=== PATIENT | female | born 1960 | race Caucasian/White ===

== ENCOUNTER 2019-08-26 20:46 | Emergency (ER) | payer OTHER ==
[~2019-08-26] VITALS: Ht 157.5 cm; Wt 77.1 kg
[~2019-08-26 20:46] MED LIST: AMLO5 PO; CIPDEXSU BOTHEYES; HYDACE25S PR; LISI20 PO; MAGCIT300 PO; POLY500 PO; Zantac25 MG/1 ML PO
== END 2019-08-26 23:08 | disposition home or self-care (01) ==
LOC: ER 20:46
DX: T16.1XXA Foreign body in right ear, initial encounter (principal); Z79.899 Other long term (current) drug therapy; I10 Essential (primary) hypertension; J44.9 Chronic obstructive pulmonary disease, unspecified; F17.200 Nicotine dependence, unspecified, uncomplicated
CPT/HCPCS: 69200; 99282-25

== ENCOUNTER 2022-03-12 08:31 | Day surgery (SDC) | payer OTHER ==
[~2022-03-12] VITALS: Ht 152.4 cm; Wt 72.3 kg
[~2022-03-12 08:31] MED LIST changes: +ASPI81CH PO; +ATOR40TA PO; +BUSPIRONE HCL7.5 M1 PO; +HYDCHL25 PO
--- NOTE | 2022-03-12 09:40 | NUR ---
Ambulatory in Day Surgery History, Chart, Medications and Allergies reviewed before start of procedure.Patient confirms NPO status and agrees with scheduled surgery. Patient states colon prep results clear.Lungs clear T/O to Auscultation. Patient States Post-Procedure ride home has been arranged WITH SISTER IN LAW
--- NOTE | 2022-03-12 11:08 | NUR ---
03/12/22 1108 Veronica Salmon HISTORY,CHART, MEDICATIONS AND ALLERGIES REVIEWED BEFORE START OF PROCEDURE. PATIENT CONFIRMS NPO STATUS AND AGREES WITH SCHEDULED PROCEDURE. 3-LEAD EKG REVIEWED WITH PHYSICIAN PRIOR TO START OF PROCEDURE. MONITOR INTACT WITH CONTINUOUS PULSE OXIMETRY AND INTERMITTENT BP. SUPPLEMENTAL O2 TO BE TITRATED THROUGHOUT PROCEDURE TO MAINTAIN O2 SATURATION ABOVE 90%. PATIENT DETERMINED TO BE ASA APPROPRIATE FOR MODERATE SEDATION PRIOR TO START OF PROCEDURE BY .
--- NOTE | 2022-03-12 11:26 | NUR ---
Patient up to Ambulate independently. Gait steady. Discharge instructions reviewed with patient. Patient verbalizes understanding. Copy given to patient to take home. Discharged via wheelchair to private car for ride home.
== END 2022-03-12 23:27 | disposition home or self-care (01) ==
LOC: ORSCMMR 08:31 → ORD 09:30 → ORSCMMR 23:27
PROVIDERS: Internal Medicine Gastroenterology
PROC: 0DBN8ZX Excision of Sigmoid Colon, Via Natural or Artificial Opening Endoscopic, Diagnostic (ICD-10-PCS; principal; 2022-03-12 09:30)
PROC: 0DBK8ZX Excision of Ascending Colon, Via Natural or Artificial Opening Endoscopic, Diagnostic (ICD-10-PCS; principal; 2022-03-12 09:30)
PROC: 0DBM8ZX Excision of Descending Colon, Via Natural or Artificial Opening Endoscopic, Diagnostic (ICD-10-PCS; principal; 2022-03-12 09:30)
PROC: 0DBE8ZX Excision of Large Intestine, Via Natural or Artificial Opening Endoscopic, Diagnostic (ICD-10-PCS; principal; 2022-03-12 09:30)
DX: K62.5 Hemorrhage of anus and rectum (principal); K63.5 Polyp of colon; K52.9 Noninfective gastroenteritis and colitis, unspecified; K57.30 Diverticulosis of large intestine without perforation or abscess without bleeding; G47.33 Obstructive sleep apnea (adult) (pediatric); I10 Essential (primary) hypertension; J44.9 Chronic obstructive pulmonary disease, unspecified; Z79.899 Other long term (current) drug therapy; Z79.82 Long term (current) use of aspirin; Z87.891 Personal history of nicotine dependence; E78.00 Pure hypercholesterolemia, unspecified; F41.9 Anxiety disorder, unspecified
CPT/HCPCS: J2250; J3010; J7120

== ENCOUNTER → 2023-08-05 | Outpatient (CLI) | payer MEDICARE, OTHER ==
[2023-08-05 12:14] LABS: BASOPHILS ABSOLUTE AUTO 0.09 K/mm3 (0.00-0.23); BASOPHILS PERCENT AUTO 1 % (0-2); EOSINOPHILS PERCENT AUTO 4 % (0-6); Hematocrit 38.3 % (33.0-51.0); Hemoglobin 13.2 g/dL (11.5-16.0); IMMATURE GRAN ABSOLUTE AUTO 0.03 K/mm3 (0.00-0.10); IMMATURE GRAN PERCENT AUTO 0 % (0-1); LYMPHOCYTES PERCENT AUTO 21 % (21-46); MONOCYTES ABSOLUTE AUTO 0.83 K/mm3 (0.16-1.47); MONOCYTES PERCENT AUTO 7 % (4-13); Mean Corpuscular HGB Conc 34.5 g/dL (31.5-36.5); Mean Corpuscular Volume 93 fL (80-100); Mean Platelet Volume 10.1 fL (9.1-12.4); NEUTROPHILS PERCENT AUTO 67 % (41-73); Platelet Count 327 K/mm3 (150-400); RDW Standard Deviation 43.8 fL (35.1-46.3); Red Blood Cell Count 4.13 M/mm3 (3.80-5.20); White Blood Cell Count 11.35 K/mm3 (4.00-11.30)
[2023-08-05 12:30] LABS: Albumin, Blood 4.4 g/dL (3.4-5.0); Albumin/Globulin Ratio 1.1 (0.8-1.8); Bilirubin, Total 0.2 mg/dL (0.1-1.0); Bun/Creatinine Ratio 25.6 (12.0-20.0); Calcium, Blood 9.8 mg/dL (8.5-10.1); Creatinine, Blood 1.6 mg/dL (0.40-1.00); Globulin, Blood 4.1 g/dL (2.2-4.0); Potassium, Blood 4.1 mmol/L (3.5-5.5); Total Protein, Blood 8.5 g/dL (6.4-8.2)
== END | disposition home or self-care (01) ==
LOC: LAB SHORT 12:06 → LAB 12:06
PROVIDERS: Family Medicine
DX: R63.4 Abnormal weight loss (principal)
CPT/HCPCS: 80053; 85025

== ENCOUNTER → 2023-08-05 | Outpatient (CLI) | payer MEDICARE, OTHER ==
[2023-08-06 07:52] LABS: Stool Occult Bld Immuno 1 Positive (NEGATIVE)
== END ==
LOC: LAB 13:45 → LAB SHORT 13:45
PROVIDERS: Family Medicine
DX: R19.7 Diarrhea, unspecified (principal)
CPT/HCPCS: G0328

== ENCOUNTER → 2023-08-10 | Outpatient (CLI) | payer MEDICARE, OTHER ==
[2023-08-10 13:16] LABS: Adenovirus F 40/41 Not Detected (NOT DETECT); Astrovirus Not Detected (NOT DETECT); Campylobacter Sp Not Detected (NOT DETECT); Cryptosporidium Not Detected (NOT DETECT); Cyclospora Cayetanensis Not Detected (NOT DETECT); E. Coli O157 Not Detected (NOT DETECT); Entamoeba Histolytica Not Detected (NOT DETECT); Enteroaggregative E. coli-EAEC Not Detected (NOT DETECT); Enteropathogenic E. coli-EPEC Not Detected (NOT DETECT); Enterotoxigenic E. coli-ETEC Not Detected (NOT DETECT); Giardia Lamblia Not Detected (NOT DETECT); Norovirus GI/GII Not Detected (NOT DETECT); Plesiomonas Shigelloides Not Detected (NOT DETECT); Rotavirus A Not Detected (NOT DETECT); Salmonella Sp Not Detected (NOT DETECT); Sapovirus Not Detected (NOT DETECT); Shiga Toxin-prod E. coli-STEC Not Detected (NOT DETECT); Shigella/Enteroin E. coli-EIEC Not Detected (NOT DETECT); Vibrio Cholerae Not Detected (NOT DETECT); Vibrio Sp Not Detected (NOT DETECT); Yersinia Enterocolitica Not Detected (NOT DETECT)
== END ==
LOC: LAB 10:00 → LAB SHORT 10:00
PROVIDERS: Family Medicine
DX: R19.7 Diarrhea, unspecified (principal)
CPT/HCPCS: 87507

== ENCOUNTER 2023-09-13 14:26 | Emergency (ER) | payer MEDICARE, OTHER ==
[~2023-09-13] VITALS: Ht 157.5 cm; Wt 58.5 kg
[2023-09-13 15:03] LABS: BASOPHILS ABSOLUTE AUTO 0.08 K/mm3 (0.00-0.23); BASOPHILS PERCENT AUTO 1 % (0-2); EOSINOPHILS ABSOLUTE AUTO 0.31 K/mm3 (0.00-0.68); EOSINOPHILS PERCENT AUTO 3 % (0-6); Hematocrit 32.5 % (33.0-51.0); Hemoglobin 11.1 g/dL (11.5-16.0); IMMATURE GRAN ABSOLUTE AUTO 0.03 K/mm3 (0.00-0.10); IMMATURE GRAN PERCENT AUTO 0 % (0-1); LYMPHOCYTES ABSOLUTE AUTO 2.61 K/mm3 (0.84-5.20); LYMPHOCYTES PERCENT AUTO 27 % (21-46); MONOCYTES ABSOLUTE AUTO 0.77 K/mm3 (0.16-1.47); MONOCYTES PERCENT AUTO 8 % (4-13); Mean Corpuscular HGB 31.9 pg (26.0-34.0); Mean Corpuscular HGB Conc 34.2 g/dL (31.5-36.5); Mean Corpuscular Volume 93 fL (80-100); Mean Platelet Volume 10.4 fL (9.1-12.4); NEUTROPHILS ABSOLUTE AUTO 5.82 K/mm3 (1.96-9.15); NEUTROPHILS PERCENT AUTO 61 % (41-73); Platelet Count 309 K/mm3 (150-400); RDW Standard Deviation 44.4 fL (35.1-46.3); Red Blood Cell Count 3.48 M/mm3 (3.80-5.20); White Blood Cell Count 9.62 K/mm3 (4.00-11.30)
[2023-09-13 15:19] LABS: Albumin/Globulin Ratio 1.1 (0.8-1.8); Bilirubin, Total 0.3 mg/dL (0.1-1.0); Bun/Creatinine Ratio 18.2 (12.0-20.0); Calcium, Blood 9.4 mg/dL (8.5-10.1); Creatinine, Blood 1.7 mg/dL (0.40-1.00); Globulin, Blood 3.8 g/dL (2.2-4.0); Potassium, Blood 4.3 mmol/L (3.5-5.5); Total Protein, Blood 7.8 g/dL (6.4-8.2)
[2023-09-13 18:30] VITALS: BP 152/76
== END 2023-09-13 19:10 | disposition home or self-care (01) ==
LOC: ER 14:26
PROVIDERS: Physician Assistant
DX: K52.9 Noninfective gastroenteritis and colitis, unspecified (principal); R63.4 Abnormal weight loss; I10 Essential (primary) hypertension; J44.9 Chronic obstructive pulmonary disease, unspecified; G47.30 Sleep apnea, unspecified; Z79.899 Other long term (current) drug therapy; Z79.82 Long term (current) use of aspirin
CPT/HCPCS: 74177; 80053; 83690; 84443; 85025; 96360-59; 99284-25; J7030; Q9967

== ENCOUNTER 2025-06-09 11:57 | Inpatient (IN) | payer MEDICARE, OTHER ==
[~2025-06-09] VITALS: Ht 154.9 cm; Wt 47.9 kg
[2025-06-09 12:27] LABS: BASOPHILS ABSOLUTE AUTO 0.08 K/mm3 (0.00-0.23); BASOPHILS PERCENT AUTO 1 % (0-2); EOSINOPHILS ABSOLUTE AUTO 0.29 K/mm3 (0.00-0.68); EOSINOPHILS PERCENT AUTO 4 % (0-6); Hematocrit 34.1 % (33.0-51.0); Hemoglobin 11.6 g/dL (11.5-16.0); IMMATURE GRAN ABSOLUTE AUTO 0.01 K/mm3 (0.00-0.10); IMMATURE GRAN PERCENT AUTO 0 % (0-1); LYMPHOCYTES ABSOLUTE AUTO 2.64 K/mm3 (0.84-5.20); LYMPHOCYTES PERCENT AUTO 35 % (21-46); MONOCYTES ABSOLUTE AUTO 0.85 K/mm3 (0.16-1.47); MONOCYTES PERCENT AUTO 11 % (4-13); Mean Corpuscular HGB Conc 34.0 g/dL (31.5-36.5); Mean Corpuscular Volume 95 fL (80-100); NEUTROPHILS ABSOLUTE AUTO 3.77 K/mm3 (1.96-9.15); NEUTROPHILS PERCENT AUTO 49 % (41-73); NRBC ABSOLUTE 0.00 K/mm3 (0.00-0.02); NRBC Auto 0.0 /100 WBC (0.0-0.2); Platelet Count 278 K/mm3 (150-400); RDW Coefficient Variation 13.7 % (11.7-14.2); RDW Standard Deviation 48.1 fL (35.1-46.3)
[2025-06-09 13:08] LABS: Alanine Aminotransfer (ALT/SGP 35.0 U/L (12-78); Albumin, Blood 4.2 g/dL (3.4-5.0); Albumin/Globulin Ratio 1.0 (0.8-1.8); Anion Gap 6.0 mmol/L (3-11); Aspartate Aminotrans (AST/SGOT 70.0 U/L (12-37); Bilirubin, Total 0.4 mg/dL (0.1-1.0); Blood Urea Nitrogen 24.0 mg/dL (8-24); CO2, Blood 29.0 mmol/L (21-32); Calcium, Blood 9.8 mg/dL (8.5-10.1); Chloride, Blood 105.0 mmol/L (98-108); Creatinine, Blood 0.71 mg/dL (0.40-1.00); Globulin, Blood 4.1 g/dL (2.2-4.0); Glucose, Blood 107.0 mg/dL (70-99); Potassium, Blood 4.7 mmol/L (3.5-5.5); Sodium, Blood 135.0 mmol/L (136-145); Total Protein, Blood 8.3 g/dL (6.4-8.2)
[2025-06-09] MEDS ORDERED: NS 1,000 ML IV SCH ×2 (14:35→22:25)
[2025-06-09] MEDS ORDERED: HydrALAZINE HCl 20 MG / ML 1ML Vial IV ONE (15:50)
[2025-06-09 16:30] LABS: Anti-Xa UFH, PHA Monitoring <0.10 IU/mL; Prothrombin Time Results 10.5 Sec (9.7-11.5)
[2025-06-09] MEDS ORDERED: Dose Adjust by Pharmacy XX STA (16:33)
[2025-06-09] MEDS ORDERED: Heparin Sodium,Porcine/0.5 NS 500 ML IV SCH (16:35)
[2025-06-09] MEDS ORDERED: Heparin Sodium 5000 Units/ML 1ML MDV IV ONE (16:35)
[2025-06-09] MEDS ORDERED: HydrALAZINE HCl 20 MG / ML 1ML Vial IV PRN (17:10)
--- NOTE | 2025-06-09 18:26 | NUR ---
ARRIVAL: PATIENT ARRIVES TO UNIT AND TRANSFERRED TO OUR BED VIA TRANSFERRING. PT WAS COLD AND SHAKING WHEN SHE GOT INTO OUR BED. VITAL SIGNS STABLE. PT WAS TRANSFFERED WITH HEAPRIN RUNNING UPON TRANSFER, THIS RN CALLED VERIFYING SHE WOULD LIKE HEPARIN DC'D ON EMAR IT WAS DISCONTINUED. GAVE VERIFCATION IT WAS DISCONTINUED AND TO ADD NAUSEA MEDICATION
[2025-06-09 18:30] VITALS: BP 155/78
[2025-06-09] MEDS ORDERED: Ondansetron HCl 2 MG / ML 2ML Vial IV PRN (18:45)
[2025-06-09 19:50] VITALS: BP 152/104
[2025-06-09] MEDS ORDERED: NS 1,000 ML IV ONE ×2 (22:21→23:29)
[2025-06-09 22:22] LABS: BASOPHILS ABSOLUTE AUTO 0.06 K/mm3 (0.00-0.23); BASOPHILS PERCENT AUTO 1 % (0-2); EOSINOPHILS ABSOLUTE AUTO 0.00 K/mm3 (0.00-0.68); EOSINOPHILS PERCENT AUTO 0 % (0-6); Hematocrit 34.4 % (33.0-51.0); Hemoglobin 11.9 g/dL (11.5-16.0); IMMATURE GRAN ABSOLUTE AUTO 0.02 K/mm3 (0.00-0.10); IMMATURE GRAN PERCENT AUTO 0 % (0-1); LYMPHOCYTES ABSOLUTE AUTO 1.31 K/mm3 (0.84-5.20); LYMPHOCYTES PERCENT AUTO 11 % (21-46); MONOCYTES ABSOLUTE AUTO 0.63 K/mm3 (0.16-1.47); MONOCYTES PERCENT AUTO 5 % (4-13); Mean Corpuscular HGB Conc 34.6 g/dL (31.5-36.5); Mean Corpuscular Volume 93 fL (80-100); NEUTROPHILS ABSOLUTE AUTO 9.69 K/mm3 (1.96-9.15); NEUTROPHILS PERCENT AUTO 83 % (41-73); NRBC ABSOLUTE 0.00 K/mm3 (0.00-0.02); NRBC Auto 0.0 /100 WBC (0.0-0.2); Platelet Count 269 K/mm3 (150-400); RDW Coefficient Variation 13.6 % (11.7-14.2); RDW Standard Deviation 45.7 fL (35.1-46.3)
--- NOTE | 2025-06-09 22:42 | NUR ---
PATIENT EVENT / TRANSFER OF CARE NOTE PT WAS GETTING SET UP WITH CPAP BY RT WHEN SHE STATED FELT DIZZY AND STARTED TO SEE STARS, AT THAT TIME TELE ALERTED THE THAT PT HAD A 12 SECOND PAUSE, PT DID NOT LOSE CONSCIOUSNESS, MULTIPLE STAFF TO BEDSIDE INCLUDING PCU CHARGE AND ICU CHARGE, EKG OBTAINED SHOWING PT WAS IN A COMPLETE HEART BLOCK, ZOLL PATCHES PLACED ON PATIENT, OTHER VSS STABLE, PT HOLDING APPROPRIATE CONVERSATION, DENIED CHEST P/P, REPORTED TINGLYING TO ARMS AND LEGS BUT STATED SHE NO LONGER WAS SEEING STARS OR FEELING LIKE SHE WAS GOING TO PASS OUT, MD TO BEDSIDE, FLUIDS STARTED, LABS OBTAINED, PT TRANSFERED TO ICU 8, BEDSIDE REPORT GIVEN TO YAEL MURRELL BY THIS RN.
[2025-06-09 22:45] VITALS: BP 133/53
--- NOTE | 2025-06-09 22:45 | NUR ---
ASSUMPTION OF CARE/PCU TRANSFER RECEIVED PT FROM PCU AT 2230. TRANSFERRED TO ICU BED, MONITORS PLACED. BEDSIDE REPORT RECEIVED FROM INSULATION PACKER NANCY. PT IN THIRD DEGREE HEART BLOCK WITH STABLE BP. PT AWAKE, ORIENTED, CONVERSING, STATES SHE JUST FEELS WEAK/LETHARGIC. ORIENTED TO SURROUNDINGS/CALL LIGHT. SEE SHIFT ASSESSMENT FOR FURTHER DETAILS.
[2025-06-09 22:49] LABS: Alanine Aminotransfer (ALT/SGP 28.0 U/L (12-78); Albumin, Blood 4.0 g/dL (3.4-5.0); Albumin/Globulin Ratio 1.1 (0.8-1.8); Anion Gap 10.0 mmol/L (3-11); Aspartate Aminotrans (AST/SGOT 31.0 U/L (12-37); Bilirubin, Total 0.4 mg/dL (0.1-1.0); Blood Urea Nitrogen 22.0 mg/dL (8-24); CO2, Blood 25.0 mmol/L (21-32); Calcium, Blood 9.4 mg/dL (8.5-10.1); Chloride, Blood 106.0 mmol/L (98-108); Creatinine, Blood 0.82 mg/dL (0.40-1.00); Globulin, Blood 3.5 g/dL (2.2-4.0); Glucose, Blood 114.0 mg/dL (70-99); Magnesium, Blood 1.9 mg/dL (1.6-2.4); Potassium, Blood 3.7 mmol/L (3.5-5.5); Sodium, Blood 137.0 mmol/L (136-145); Total Protein, Blood 7.5 g/dL (6.4-8.2)
[2025-06-09 23:00] VITALS: BP 145/56
[2025-06-09 23:15] VITALS: BP 132/60
--- NOTE | 2025-06-09 23:25 | NUR ---
BILINGUAL LEGAL ASSISTANT PT TO BILINGUAL LEGAL ASSISTANT FOR TEMPORARY PACEMAKER PLACEMENT BY DR. CARDOZA.
[2025-06-09] MEDS ORDERED: Midazolam HCl 1MG / ML 2ML Vial ONE (23:28)
[2025-06-09] MEDS ORDERED: NS 250 ML IV ONE (23:28)
[2025-06-09] MEDS ORDERED: FentaNYL Citrate 50 MCG/ML 2 ML Injection ONE (23:28)
[2025-06-09] MEDS ORDERED: Heparin Sodium 1000 Units/ML 10ML MDV ONE (23:29)
[2025-06-09] MEDS ORDERED: Ondansetron HCl 2 MG / ML 2ML Vial ONE (23:59)
[2025-06-10] VITALS (60 sets, daily range): BP systolic 92–175; BP diastolic 53–112
--- NOTE | 2025-06-10 00:42 | NUR ---
TRANSFER FROM BREAST PULLER PT RETURNED FROM BREAST PULLER AT 0035 WITH A TEMPORARY PACEMAKER, RATE AT 60. PT STATES, "I FEEL MUCH BETTER". VSS. SEE ASSESSMENT FOR PACEMAKER INFO/SETTINGS.
[2025-06-10] MEDS ORDERED: Dose Adjust by Pharmacy XX STA ×3 (01:03→15:46)
[2025-06-10] MEDS ORDERED: Heparin Sodium,Porcine/0.5 NS 500 ML IV SCH (01:05)
[2025-06-10 02:41] LABS: BASOPHILS ABSOLUTE AUTO 0.02 K/mm3 (0.00-0.23); BASOPHILS PERCENT AUTO 0 % (0-2); EOSINOPHILS ABSOLUTE AUTO 0.01 K/mm3 (0.00-0.68); EOSINOPHILS PERCENT AUTO 0 % (0-6); Hematocrit 33.3 % (33.0-51.0); Hemoglobin 11.3 g/dL (11.5-16.0); IMMATURE GRAN ABSOLUTE AUTO 0.01 K/mm3 (0.00-0.10); IMMATURE GRAN PERCENT AUTO 0 % (0-1); LYMPHOCYTES ABSOLUTE AUTO 0.76 K/mm3 (0.84-5.20); LYMPHOCYTES PERCENT AUTO 10 % (21-46); MONOCYTES ABSOLUTE AUTO 0.35 K/mm3 (0.16-1.47); MONOCYTES PERCENT AUTO 5 % (4-13); Mean Corpuscular HGB Conc 33.9 g/dL (31.5-36.5); Mean Corpuscular Volume 95 fL (80-100); NEUTROPHILS ABSOLUTE AUTO 6.16 K/mm3 (1.96-9.15); NEUTROPHILS PERCENT AUTO 84 % (41-73); NRBC ABSOLUTE 0.00 K/mm3 (0.00-0.02); NRBC Auto 0.0 /100 WBC (0.0-0.2); Platelet Count 237 K/mm3 (150-400); RDW Coefficient Variation 14.0 % (11.7-14.2); RDW Standard Deviation 48.5 fL (35.1-46.3)
[2025-06-10 03:02] LABS: Anion Gap 11.0 mmol/L (3-11); Blood Urea Nitrogen 24.0 mg/dL (8-24); CO2, Blood 23.0 mmol/L (21-32); Calcium, Blood 9.1 mg/dL (8.5-10.1); Chloride, Blood 107.0 mmol/L (98-108); Creatinine, Blood 0.89 mg/dL (0.40-1.00); Glucose, Blood 113.0 mg/dL (70-99); Potassium, Blood 3.8 mmol/L (3.5-5.5); Sodium, Blood 137.0 mmol/L (136-145)
--- NOTE | 2025-06-10 06:25 | NUR ---
SHIFT SUMMARY RECEIVED PT FROM PCU IN THIRD DEGREE HEART BLOCK. PT WENT TO [facility]OTE ENCODING CENTER MANAGER AND HAD A TRANSVENOUS TEMPORARY PACEMAKER PLACED BY DR CARDOZA. UPON RETURN TO ICU, PT STATED, "I FEEL SO MUCH BETTER". VS REMAINED STABLE T/O NIGHT, DENIES CP OR DISCOMFORT, NO NAUSEA. WILL UPDATE DAY RN WITH OUTSTANDING ISSUES AND PROBLEMS TO DATE.
--- NOTE | 2025-06-10 10:42 | NUR ---
AM NOTE PT AWAKE AND ORIENTEDX4 IN BED FOR BEDSIDE REPORT FROM NOC NURSE. NEURO: ORIENTED X4. CARDIAC: TEMP TVP IN PLACE, 34 AT INSERTION SITE, SETTINGS 60/4/2 WITH CAPTURE DISPLAYING ON MONITOR. RESPIRATORY: ON RA, BREATH SOUNDS CLEAR. GI: NPO IN ANTICIPATION TO POTENTIAL ANGIO/CATH TODAY, BOWEL SOUNDS HYPOACTIVE. : WNL. SKIN INTACT AND WITHOUT BREAKDOWN. GTTS: HEPARIN 15, NS 75 ACCESS: PIV LFA AND LAC DREILING AT BEDSIDE TO DISCUSS PLAN OF CARE. WILL NOT PROCEED W/ ANGIO. PT CAN HAVE CARIDIAC DIET UNTIL 0000 06/12 IN ANTICIPATION FOR PERMANENT PACER PLACEMENT.
--- NOTE | 2025-06-10 17:46 | NUR ---
PM NOTE PT ASSESSMENT REMAINS THE SAME AM NOTE. HEPARIN HAS BEEN ADJUSTED TO 16 PER PHARMACY DOSING AND WILL REMAIN UNTIL REDRAW AT 2100 EVALUATION. PT TO REMAIN ON HEPARIN FOR 48 HOURS PER CARIOLOGY. PLAN FOR PACEMAKER PLACEMENT ON 06/12/25 REMAINS.
[2025-06-10] MEDS ORDERED: Clarify Drug Order XX ONE (21:30)
[2025-06-11] VITALS (46 sets, daily range): BP systolic 82–177; BP diastolic 51–139
[2025-06-11 03:20] LABS: BASOPHILS ABSOLUTE AUTO 0.07 K/mm3 (0.00-0.23); BASOPHILS PERCENT AUTO 1 % (0-2); EOSINOPHILS ABSOLUTE AUTO 0.38 K/mm3 (0.00-0.68); EOSINOPHILS PERCENT AUTO 5 % (0-6); Hematocrit 34.1 % (33.0-51.0); Hemoglobin 11.7 g/dL (11.5-16.0); IMMATURE GRAN ABSOLUTE AUTO 0.02 K/mm3 (0.00-0.10); IMMATURE GRAN PERCENT AUTO 0 % (0-1); LYMPHOCYTES ABSOLUTE AUTO 2.93 K/mm3 (0.84-5.20); LYMPHOCYTES PERCENT AUTO 36 % (21-46); MONOCYTES ABSOLUTE AUTO 0.88 K/mm3 (0.16-1.47); MONOCYTES PERCENT AUTO 11 % (4-13); Mean Corpuscular HGB Conc 34.3 g/dL (31.5-36.5); Mean Corpuscular Volume 95 fL (80-100); NEUTROPHILS ABSOLUTE AUTO 3.82 K/mm3 (1.96-9.15); NEUTROPHILS PERCENT AUTO 47 % (41-73); NRBC ABSOLUTE 0.00 K/mm3 (0.00-0.02); NRBC Auto 0.0 /100 WBC (0.0-0.2); Platelet Count 235 K/mm3 (150-400); RDW Coefficient Variation 14.3 % (11.7-14.2); RDW Standard Deviation 49.4 fL (35.1-46.3)
[2025-06-11 03:39] LABS: Anion Gap 7.0 mmol/L (3-11); Blood Urea Nitrogen 32.0 mg/dL (8-24); CO2, Blood 26.0 mmol/L (21-32); Calcium, Blood 8.4 mg/dL (8.5-10.1); Chloride, Blood 109.0 mmol/L (98-108); Creatinine, Blood 1.09 mg/dL (0.40-1.00); Glucose, Blood 112.0 mg/dL (70-99); Potassium, Blood 4.2 mmol/L (3.5-5.5); Sodium, Blood 138.0 mmol/L (136-145)
[2025-06-11] MEDS ORDERED: Clarify Drug Order XX ONE (04:35)
--- NOTE | 2025-06-11 06:23 | NUR ---
SHIFT SUMMARY PT HAD A RESTFUL, UNEVENTFUL NIGHT. TRANSVENOUS TEMP PACEMAKER INTACT, MEASURES AT APPROX 34 CM, NO CHANGE IN SETTINGS, RATE 60, OUTPUT 4 SENSING 2. VSS. DENIES CP/DISTRESS OR N/V. WILL UPDATE DAY RN WITH PT STATUS.
--- NOTE | 2025-06-11 11:22 | NUR ---
AM NOTE PT AWAKE AND ORIENTED FOR BEDSIDE REPORT W/ NOC RN. NEURO: A&OX4, AFEBRILE. CARDIAC: TEMP TVP IN PLACE IN [facility], MEASURING 34 AT INSERTION. SETTINGS 60/4/2, CONTINUOUS CARDIAC MONITORING SHOWS FULL CAPTURE OF PACER. RESPIRATORY: SATURATING WELL ON RA AND LUNGS CLEAR TO AUSCULTATION. GI: BOWEL SOUNDS ACTIVE AND ABD NONTENDER/SOFT TO PALPATION. : WNL. SKIN INTACT AND W/O BREAKDOWN. ACCESS: LFA PIV, RFA PIV GTTS: HEPARIN AT 16 DREILING AT BEDSIDE TO DO PACER CHECK/DISCUSS PLAN OF CARE W/ PATIENT. HEPARIN TO BE DC'D AT 0200 TO COMPLETE 48 HOUR REQUIREMENT. PT TO BE NPO AT MIDNIGHT IN PREPARATION FOR PROCEDURE 06/12/25. PT IS UNDERSTANDING OF THIS.
--- NOTE | 2025-06-11 18:01 | NUR ---
PM NOTE PT ASSESSMENT REMAINED UNCHANGED T/O SHIFT. SEE AM NOTE FOR DETAILS. PLAN FOR PERMANENT PACEMAKER 06/12, PT TO BE NPO AFTER MIDNIGHT. HEPARIN GTT TO BE DC'D AT 0200 06/12. PT REQUIRED ONE DOSE OF PRN HYDRALAZINE TO MAINTAIN SBP GOAL. ACCESS: RFA PIV, LFA PIV GTTS: HEPARIN AT 4
--- NOTE | 2025-06-11 23:57 | NUR ---
ASSUMED CARE OF PT AT 1900 PT IN ROOM ON BED, TALKING W/ VISITOR AT BEDSIDE. PT ALERT AND ORIENTED, COOPERATIVE W/ CARE. DENIES CP OR SOB. PT USING CALL LIGHT APPROPRIATELY. PT ON ROOM AIR W/ CLEAR LUNGS. PACED RATE OF 60 VIA [id number] NEON PUMPER. TEMPORARY PACER TO RIJ- AT APPROX 34CM INSERTION SITE. SETTINGS: 6-4-2. BP STABLE. PT AFEBRILE. USING BSC W/ MINIMAL NURSE ASSIST. PT AWARE SHE WILL BE NPO AT MIDNIGHT. PLAN FOR PACER PLACEMENT TOMORROW. PLAN OF CARE ONGOING.
[2025-06-12] VITALS (31 sets, daily range): BP systolic 91–201; BP diastolic 62–101
[2025-06-12 03:25] LABS: BASOPHILS ABSOLUTE AUTO 0.08 K/mm3 (0.00-0.23); BASOPHILS PERCENT AUTO 1 % (0-2); EOSINOPHILS ABSOLUTE AUTO 0.37 K/mm3 (0.00-0.68); EOSINOPHILS PERCENT AUTO 5 % (0-6); Hematocrit 33.1 % (33.0-51.0); Hemoglobin 11.3 g/dL (11.5-16.0); IMMATURE GRAN ABSOLUTE AUTO 0.01 K/mm3 (0.00-0.10); IMMATURE GRAN PERCENT AUTO 0 % (0-1); LYMPHOCYTES ABSOLUTE AUTO 2.69 K/mm3 (0.84-5.20); LYMPHOCYTES PERCENT AUTO 36 % (21-46); MONOCYTES ABSOLUTE AUTO 0.87 K/mm3 (0.16-1.47); MONOCYTES PERCENT AUTO 12 % (4-13); Mean Corpuscular HGB Conc 34.1 g/dL (31.5-36.5); Mean Corpuscular Volume 95 fL (80-100); NEUTROPHILS ABSOLUTE AUTO 3.45 K/mm3 (1.96-9.15); NEUTROPHILS PERCENT AUTO 46 % (41-73); NRBC ABSOLUTE 0.00 K/mm3 (0.00-0.02); NRBC Auto 0.0 /100 WBC (0.0-0.2); Platelet Count 222 K/mm3 (150-400); RDW Coefficient Variation 14.6 % (11.7-14.2); RDW Standard Deviation 50.4 fL (35.1-46.3)
[2025-06-12 04:36] LABS: Anion Gap 5.0 mmol/L (3-11); Blood Urea Nitrogen 35.0 mg/dL (8-24); CO2, Blood 26.0 mmol/L (21-32); Calcium, Blood 9.0 mg/dL (8.5-10.1); Chloride, Blood 111.0 mmol/L (98-108); Creatinine, Blood 1.06 mg/dL (0.40-1.00); Glucose, Blood 113.0 mg/dL (70-99); Potassium, Blood 4.4 mmol/L (3.5-5.5); Sodium, Blood 138.0 mmol/L (136-145)
[2025-06-12] MEDS ORDERED: Clarify Drug Order XX ONE (04:50)
[2025-06-12] MEDS ORDERED: CeFAZolin Sodium 1000 mg Vial ONE ×2 (10:52→10:57)
[2025-06-12] MEDS ORDERED: NS 1,000 ML IV ONE ×2 (10:52→10:57)
[2025-06-12] MEDS ORDERED: Heparin Sodium 1000 Units/ML 10ML MDV ONE (10:52)
[2025-06-12] MEDS ORDERED: NS 50 ML IV ONE (10:57)
[2025-06-12] MEDS ORDERED: Midazolam HCl 1MG / ML 2ML Vial ONE (11:34)
[2025-06-12] MEDS ORDERED: FentaNYL Citrate 50 MCG/ML 2 ML Injection ONE (11:35)
--- NOTE | 2025-06-12 13:44 | NUR ---
REASSESSMENT PT SPENT THE MORNING RESTING IN BED, EXCEPT TO GET UP TO COMMODE TO VOID. LUNGS HAVE REMAINED CLEAR, RA, 100% V-PACED VIA TV PACER. PT LEFT TO GET PERMANENT PACER PLACED AROUND 1100.
[2025-06-12] MEDS ORDERED: CeFAZolin Sodium 1,000 MG in NS 50 ML IV SCH (14:00)
--- NOTE | 2025-06-12 14:18 | NUR ---
PT BACK FROM LINE WORKER AFTE RPACER PLACEMENT. PT ALERT AND ORIENTED, DENIES PAIN. DRESSING OVER SITE WHERE TV PACER WAS IS C/D/I, SOFT, NO HEMATOMA. DRESSING OVER L CHEST FROM PACER PLACEMENT. SM, NICKEL SIZE AMOUNT OF SS DRAINAGE, OUTLINED. ICE PACK PLACED OVER SITE. PT'S FRIEND AND MOTHER AT THE BEDSIDE. THEY WERE UPDATED BY DR. BREWER IN THE WAITING ROOM. ACTIVITY RESTRICTIONS REVIEWED WITH PT.
--- NOTE | 2025-06-12 14:38 | NUR ---
SPOKE TO DR. GUZMAN ABOUT PT'S HTN. RECEIVED ORDER TO INCREASE PT'S DAILY DOSE OF LISINOPRIL TO 40MG, WHICH PT HAD BEEN TAKING AT HOME, AND GIVE ONE TIME 30MG DOSE.
--- NOTE | 2025-06-12 17:13 | NUR ---
SHIFT SUMMARY PT HAS REMAINED ALERT AND ORIENTED SINCE RETURNING FROM DAIRY FEED SALES CONSULTANT. SHE HAS BEEN AV PACE, V PACE AND HAD SOME INTRINSIC BEATS ON THE MONITOR. SHE WAS HYPERTENSIVE AFTER RETURNING AND RECEIVED HYDRALAZINE. SHORTLY AFTER SHE GOT NAUSEOUS AND THREW UP, BUT PT STATES NAUSEA IS VERY COMMON FOR HER. SBP REMAINS IN THE 160S. NAUSEA IMRPOVED WITH ZOFRAN AND PT WAS ABLE TO KEEP TYLENOL DOWN FOR PAIN THAT WAS STARTING TO DEVELOP IN HER SHOULDER. GETTING UP TO COMMODE TO VOID AND WAS ABLE TO TRANSFER SELF TO TO GO TO XRAY. PT'S MOTHER AND FRIEND HAVE BEEN IN AND VISITED.
--- NOTE | 2025-06-12 20:33 | NUR ---
ASSUMED CARE OF PT AT 1900 PT SITTING UP IN CHAIR- TRANSFERS SELF TO BED W/ LINE ASSIST AND STEADY GAIT. PT HAS VISITORS AND IS AOX4. DENIES CP/PRESSURE. PT SALINE LOCKED. ON ROOM AIR W/ ADEQUATE SATRUATIONS. PACED RHYTHM RATE OF 60S VIA CONTINUOUS MONITOR. INSERTION SITE TO L. CHEST C/D/I. BP STABLE. PT AFEBRILE. DENIES CURRENT NEEDS. CALL LIGHT W/ IN REACH. PLAN OF CARE ONGOING.
[2025-06-13] VITALS (10 sets, daily range): BP systolic 125–171; BP diastolic 70–90
[2025-06-13 03:19] LABS: BASOPHILS ABSOLUTE AUTO 0.08 K/mm3 (0.00-0.23); BASOPHILS PERCENT AUTO 1 % (0-2); EOSINOPHILS ABSOLUTE AUTO 0.18 K/mm3 (0.00-0.68); EOSINOPHILS PERCENT AUTO 2 % (0-6); Hematocrit 33.2 % (33.0-51.0); Hemoglobin 11.0 g/dL (11.5-16.0); IMMATURE GRAN ABSOLUTE AUTO 0.01 K/mm3 (0.00-0.10); IMMATURE GRAN PERCENT AUTO 0 % (0-1); LYMPHOCYTES ABSOLUTE AUTO 1.92 K/mm3 (0.84-5.20); LYMPHOCYTES PERCENT AUTO 25 % (21-46); MONOCYTES ABSOLUTE AUTO 0.92 K/mm3 (0.16-1.47); MONOCYTES PERCENT AUTO 12 % (4-13); Mean Corpuscular HGB Conc 33.1 g/dL (31.5-36.5); Mean Corpuscular Volume 97 fL (80-100); NEUTROPHILS ABSOLUTE AUTO 4.66 K/mm3 (1.96-9.15); NEUTROPHILS PERCENT AUTO 60 % (41-73); NRBC ABSOLUTE 0.00 K/mm3 (0.00-0.02); NRBC Auto 0.0 /100 WBC (0.0-0.2); Platelet Count 198 K/mm3 (150-400); RDW Coefficient Variation 14.6 % (11.7-14.2); RDW Standard Deviation 52.2 fL (35.1-46.3)
--- NOTE | 2025-06-13 05:58 | NUR ---
NOC SHIFT SUMMARY NO ACUTE EVENTS. PT SLEPT FOR MAJORITY OF SHIFT. DENIES CP OR SOB. REPORTS TENDERNESS TO PACER INSERTION SITE. DRESSING UNCHANGED FROM START OF SHIFT- NO FURTHER OOZING OBSERVED- DRESSING INTACT. PT REMAINS ON ROOM AIR. PACED RHYTHM, RATE OF 60S ON MONITOR. PT AFEBRILE. UP TO RR INDEPENDENTLY. USING CALL LIGHT APPROPRIATELY- WITHIN REACH. PLAN OF CARE ONGOING
[2025-06-13 08:03] LABS: Anion Gap 14.0 mmol/L (3-11); Blood Urea Nitrogen 29.0 mg/dL (8-24); CO2, Blood 23.0 mmol/L (21-32); Calcium, Blood 9.1 mg/dL (8.5-10.1); Chloride, Blood 107.0 mmol/L (98-108); Creatinine, Blood 1.02 mg/dL (0.40-1.00); Glucose, Blood 105.0 mg/dL (70-99); Potassium, Blood 4.5 mmol/L (3.5-5.5); Sodium, Blood 139.0 mmol/L (136-145)
[2025-06-13] MEDS ORDERED: LISI20 PO (08:53)
--- NOTE | 2025-06-13 10:20 | NUR ---
SHIFT/DISCHARGE SUMMARY NEURO: ALERT AND ORIENTED X4. MOVES ALL EXTREMITITES WELL. CARDIC: SR VPACED, EKG COMPLETED THIS AM PRIOR TO DC. SBP 130-140S ONE READING 170S PT EATING BREAKFAST AT THAT TIME. HR 60-70S. DENIES ANY SYNCOPE. PULM: LUNGS CLEAR TO AUSCULATION, DENIES ANY CHANGES IN BREATHING : INDEPENDENT PER PT URINATING PER NORMAL GI: ABDOMEN SOFT/NON TENDER, NORMOACTIVE BOWEL TONES SKIN: S/P PACEMAKER PLACEMENT. GAUZE/TEGADERM +DRAINAGE VISIBLE, NIGHT RN STATES UNCHANGED FROM LAST NIGHT. AREA IS MARKED. PRIOR RIJ SITE FOR TEMP PACER. DSG REMOVED SITE HEALING. PT INDEPENDENT MOBILITY. DISCUSSED DISCHARGE INSTRUCTIONS SIGNED POST PACEMAKER DISCHARGE INSTRUCTION AND REVIEWED MR SURE SCAN PACEMAKER PATIENT BRIAN. PT EXPRESSED UNDERSTANDING OF DISCHARGE INSTRUCTIONS. REVIEWED SCHEDULED FOLLOW UP APPTS. FRIEND CAME TO TRANSPORT TO HOME AND WILL BE STAYING WITH HER THIS WEEK TO HELP CARE FOR HER AND HER MOTHER. D/C HOME IN PRIVATE VEHICLE
--- NOTE | 2025-06-13 10:29 | NUR ---
PT D/C AT 8018. FRIEND TRANSPORTING TO HER HOME IN A PRIVATE VEHICLE
== END 2025-06-13 09:50 | disposition home or self-care (01) | DRG 242 ==
LOC: ER 11:57 → ICUE 17:10 → PCU 17:10 → ICUE 22:30
PROVIDERS: Internal Medicine; Student in an Organized Health Care Education/Training Program; ADMIT Family Medicine
PROC: 5A1223Z Performance of Cardiac Pacing, Continuous (ICD-10-PCS; principal; 2025-06-09)
PROC: 0JH606Z Insertion of Pacemaker, Dual Chamber into Chest Subcutaneous Tissue and Fascia, Open Approach (ICD-10-PCS; 2025-06-12)
PROC: 02H63JZ Insertion of Pacemaker Lead into Right Atrium, Percutaneous Approach (ICD-10-PCS; 2025-06-12)
PROC: 02HK3JZ Insertion of Pacemaker Lead into Right Ventricle, Percutaneous Approach (ICD-10-PCS; 2025-06-12)
DX: I44.2 Atrioventricular block, complete (principal); I21.A1 Myocardial infarction type 2; E87.1 Hypo-osmolality and hyponatremia; I16.1 Hypertensive emergency; I16.0 Hypertensive urgency; I45.2 Bifascicular block; J44.9 Chronic obstructive pulmonary disease, unspecified; K52.9 Noninfective gastroenteritis and colitis, unspecified; E78.5 Hyperlipidemia, unspecified; F12.90 Cannabis use, unspecified, uncomplicated; I12.9 Hypertensive chronic kidney disease with stage 1 through stage 4 chronic kidney disease, or unspecified chronic kidney disease; N18.30 Chronic kidney disease, stage 3 unspecified; I25.10 Atherosclerotic heart disease of native coronary artery without angina pectoris; G47.33 Obstructive sleep apnea (adult) (pediatric); R55 Syncope and collapse; R53.83 Other fatigue; D63.1 Anemia in chronic kidney disease; Z99.81 Dependence on supplemental oxygen; Z79.82 Long term (current) use of aspirin; Z79.899 Other long term (current) drug therapy; Z90.710 Acquired absence of both cervix and uterus; Z90.722 Acquired absence of ovaries, bilateral; Z90.89 Acquired absence of other organs; Z98.890 Other specified postprocedural states; Z86.2 Personal history of diseases of the blood and blood-forming organs and certain disorders involving the immune mechanism
CPT/HCPCS: 33208; 33210; 33228; 36415; 71045; 71046; 76937; 80048; 80053; 82728; 83540; 83550; 83735; 84443; 84484; 85025; 85379; 85520; 85610; 85730; 93005; 93010; 93306; 94660; 94762; 96374; 96375; 99152; 99153; 99285-25; A9270; C1785; C1894; C1898; J0360; J0690; J1644; J2250; J2405; J3010; J7030; J7040; J7050; Q9967

== ENCOUNTER → 2025-06-09 | Outpatient (CLI) | payer MEDICARE, OTHER ==
[2025-06-09 11:13] LABS: BASOPHILS ABSOLUTE AUTO 0.08 K/mm3 (0.00-0.23); BASOPHILS PERCENT AUTO 1 % (0-2); EOSINOPHILS ABSOLUTE AUTO 0.27 K/mm3 (0.00-0.68); EOSINOPHILS PERCENT AUTO 4 % (0-6); Hematocrit 34.1 % (33.0-51.0); Hemoglobin 11.6 g/dL (11.5-16.0); IMMATURE GRAN ABSOLUTE AUTO 0.01 K/mm3 (0.00-0.10); IMMATURE GRAN PERCENT AUTO 0 % (0-1); LYMPHOCYTES ABSOLUTE AUTO 2.29 K/mm3 (0.84-5.20); LYMPHOCYTES PERCENT AUTO 34 % (21-46); MONOCYTES ABSOLUTE AUTO 0.62 K/mm3 (0.16-1.47); MONOCYTES PERCENT AUTO 9 % (4-13); Mean Corpuscular HGB Conc 34.0 g/dL (31.5-36.5); Mean Corpuscular Volume 96 fL (80-100); NEUTROPHILS ABSOLUTE AUTO 3.43 K/mm3 (1.96-9.15); NEUTROPHILS PERCENT AUTO 51 % (41-73); NRBC ABSOLUTE 0.00 K/mm3 (0.00-0.02); NRBC Auto 0.0 /100 WBC (0.0-0.2); Platelet Count 258 K/mm3 (150-400); RDW Coefficient Variation 13.8 % (11.7-14.2); RDW Standard Deviation 48.7 fL (35.1-46.3)
[2025-06-09 11:37] LABS: Alanine Aminotransfer (ALT/SGP 34.0 U/L (12-78); Albumin, Blood 4.1 g/dL (3.4-5.0); Albumin/Globulin Ratio 1.1 (0.8-1.8); Anion Gap 10.0 mmol/L (3-11); Aspartate Aminotrans (AST/SGOT 32.0 U/L (12-37); Bilirubin, Total 0.3 mg/dL (0.1-1.0); Blood Urea Nitrogen 29.0 mg/dL (8-24); CO2, Blood 29.0 mmol/L (21-32); Calcium, Blood 9.6 mg/dL (8.5-10.1); Chloride, Blood 103.0 mmol/L (98-108); Creatinine, Blood 0.89 mg/dL (0.40-1.00); Globulin, Blood 3.6 g/dL (2.2-4.0); Glucose, Blood 122.0 mg/dL (70-99); Potassium, Blood 3.6 mmol/L (3.5-5.5); Sodium, Blood 138.0 mmol/L (136-145); Thyroid Stimulating Hormone 1.438 uIU/mL (0.360-4.800); Total Protein, Blood 7.7 g/dL (6.4-8.2)
[2025-06-12 12:32] LABS: Ferritin, Serum 24.0 ng/mL (8-252); Total Iron Binding Capacity 257.0 ug/dL (250-450)
== END | disposition home or self-care (01) ==
LOC: LAB 11:10 → LAB SHORT 11:10
PROVIDERS: Physician Assistant
DX: R55 Syncope and collapse (principal); R53.83 Other fatigue; Z86.2 Personal history of diseases of the blood and blood-forming organs and certain disorders involving the immune mechanism
CPT/HCPCS: 80053; 82728; 83540; 83550; 84443; 84484; 85025; 85379